=== PATIENT | female | born 1980 | race Caucasian/White ===

== ENCOUNTER 2023-06-28 13:18 | Emergency (ER) | payer OTHER, SELFPAY ==
--- NOTE | ~2023-06-28 | XR_ITS ---
EXAMINATION: XR CHEST CLINICAL INFORMATION: Chest tightness COMPARISON: None available. TECHNIQUE: 2 views of the chest were obtained. FINDINGS: There is no evidence of acute parenchymal disease, pneumothorax, or pleural effusion. Heart normal size. No evidence of pulmonary edema. Status post previous left neck surgery. 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 XR/XR chest 2V IMPRESSION: No acute disease.
[2023-06-28 15:15] VITALS: BP 98/64; PULSE 103; RESP 18; TEMP 37.1; O2SAT 99; BMI 27.1
--- NOTE | 2023-06-28 15:15 | ED.GENADULT ---
HPI - General Adult General Chief complaint: Upper Respiratory Symptoms Stated complaint: flu like symptoms Time Seen by Provider: 06/28/23 23:25 Source: patient and family () Mode of arrival: ambulatory Limitations: no limitations History of Present Illness HPI narrative: 43-year-old female with history of diabetes mellitus and asthma who presents emergency department for evaluation of positive flu test 3 days prior with persistent fever as high as 103 degrees F, nonproductive cough, chest pain, shortness of breath, fatigue, weakness, nausea, vomiting and diarrhea. Patient states she tested positive for influenza 3 days prior. She states that she has had a cough which is nonproductive, she has chest tightness which is worse with coughing. She does have asthma and she has been using her inhaler frequently for shortness of breath. She states that she has had nausea with 1 or 2 episodes of vomiting per day. She states she had diarrhea today after drinking soup. She complains of fatigue, myalgias and arthralgias. She states she was not feeling better therefore she came to the emergency department for evaluation. Patient had an adverse reaction to Tamiflu she states this caused her to have nausea and vomiting. Related Data Previous Rx's Medication Instructions Recorded benzonatate 200 mg capsule 200 mg PO TID PRN cough #20 caps 06/28/23 ondansetron 4 mg disintegrating 4 mg PO Q6-8H PRN nausea and 06/28/23 tablet vomiting #14 tabs Allergies Allergy/AdvReac Type Severity Reaction Status Date / Time oseltamivir [From Tamiflu] Allergy Nausea Verified 06/28/23 15:15 Review of Systems Review of Systems: Yes all other systems are reviewed and are negative [facility] Past Medical History Attestation statement: The following information was validated with the patient. [facility] Narrative: Past medical history: Asthma, diabetes mellitus. Social history: She is . She denies tobacco, alcohol and drug use. Onset Date is defined in the Problem List Problems that require an onset date and time if occurred within 24 hrs of arrival to the ED Aortic Dissection and Rupture; Neurologic impairment; Cardiopulmonary Arrest; Endotracheal Intubation; Insertion or Replacement of Mechanical Circulatory Assist Device Social History Social History Advance Directives: No Advance Directives Information Provided: Yes Physical Exam ED Vital Signs: Vital Signs - 24 hr 06/28/23 15:15 06/28/23 20:12 06/28/23 22:46 Temperature 98.8 F 100.1 F 100.2 F Pulse Rate 103 H 102 H 114 H Respiratory Rate 18 20 18 Blood Pressure 98/64 122/68 122/74 Pulse Oximetry 99 98 98 Oxygen Delivery Method Room Air Room Air Room Air BMI result Body Mass Index 27.1 Vital signs did reveal an elevated heart rate of 103, O2 saturation was 99% on room air Exam General: Awake, alert in no distress Head: Normocephalic, atraumatic EENT: PERRL, Lids normal, sclera normal, conjunctiva normal, nose normal , ears normal, throat without erythema or exudates Neck: Supple, no adenopathy, no trachea midline or C-spine tenderness Lung: breath sounds symmetric, no wheezing, rales or rhonchi Chest: symmetric movement, nontender Heart: regular rate and rhythm, normal S1, S2 no murmurs or rubs Abdomen: soft, non-tender, nondistended, normal bowel sounds Back: no vertebral tenderness, no CVAT Extremities: no deformities, moves all extremities symmetrically Neuro: Awake, alert, oriented, normal speech,moves all extremities symmetrically Psych: Pleasant, cooperative Course Course Course Narrative: This is an RME: Additional HPI, ROS, PE not included below will be deferred to primary provider. This is a 43-year old female, with a hx of asthma, presenting to the emergency department with a complaint of fevers and chest tightness x 3 days. She tested positive for flu 3 days ago. Reporting chest tightness. Reporting diarrhea, vomiting. Taking Tylenol. Plan: Labs Medications Administered Discontinued Medications Generic Name Dose Route Start Last Admin Trade Name Riteshq PRN Reason Stop Dose Admin Acetaminophen 650 mg 06/28/23 22:48 06/28/23 22:50 Acetaminophen 325 Mg Tablet PO 06/28/23 22:49 650 mg ONCE ONE Administration Medical Decision Making Medical Decision Making [facility] Narrative: 43-year-old female history of asthma, diabetes who tested positive for influenza 3 days prior presents emergency department for evaluation of persistent fever, nonproductive cough, chest tightness with breathing coughing, shortness of breath, nausea, vomiting and diarrhea. Patient's vital signs did reveal an elevated pulse otherwise were unremarkable. Physical examination was unremarkable Following evaluation was ordered: CBC, CMP, chest x-ray 23:50 My interpretation patient's laboratory evaluation is as follows: CBC was normal. Glucose elevated 131. My interpretation patient's chest x-ray is no acute disease Patient's symptoms are consistent with acute influenza and I did discuss this with her. Patient was advised to continue taking Tylenol and ibuprofen for pain and fever She was prescribed Tessalon Perles 200 mg 3 times a day as needed for cough and ondansetron ODT 4 mg every 6 hours as needed for nausea and vomiting Patient was given a work note Differential Diagnosis Differential Diagnoses: The differential diagnosis associated with the presentation includes Differential diagnosis includes was not limited to acute viral syndrome, pneumonia, asthma exacerbation, electrolyte abnormalities, anemia Admission/Observation Consideration of admission/observation: Escalation of care including admission/observation considered Lab Data MDM Lab Attestation statement: I reviewed the patient's lab results. 06/28/23 16:43 06/28/23 16:43 Labs: Lab Results 06/28/23 Range/Units 16:43 WBC 6.2 (4.8-10.8) X10*3/uL RBC 4.54 (4.20-5.50) X10*6/uL Hgb 13.7 (12.0-16.0) g/dl Hct 40.3 (37.0-47.0) % MCV 88.8 (80.0-98.0) fL MCH 30.2 (27.0-33.0) pg MCHC 34.0 (31.0-35.0) g/dl RDW 13.1 (11.0-16.0) % Plt Count 320 (160-400) X10*3/uL MPV 9.9 (9.4-12.3) fL Immature Gran % (Auto) 0.2 (0.0-0.4) % Neut % (Auto) 59.7 (45-73) % Lymph % (Auto) 31.7 (20-40) % [place] % (Auto) 6.0 (2-11) % Eos % (Auto) 1.6 (0-4) % Baso % (Auto) 0.8 (0-2) % Lymph # (Auto) 2.0 (1.2-4.9) X10*3/uL [place] # (Auto) 0.4 (0.1-1.2) X10*3/uL Eos # (Auto) 0.1 (0.0-0.4) X10*3/uL Baso # (Auto) 0.1 (0.0-0.2) X10*3/uL Abs Immat Gran (auto) 0.01 (0.00-0.03) X10*3/uL Absolute Neuts (auto) 3.7 (2.0-8.3) x10*3/uL Absolute Nucleated RBC 0.000 (0.0-0.012) X10*3/uL Nucleated RBC % (auto) 0.0 (0.0-0.2) /100WBC Sodium 139 (135-145) mmol/L Potassium 3.4 (3.3-5.1) mmol/L Chloride 103 (96-108) mmol/L Carbon Dioxide 25 (22-29) mmol/L Anion Gap 14 (12-20) BUN 8 L (9-16) mg/dL Creatinine 0.87 (0.5-1.4) mg/dL Estim Creat Clear Calc 88.1 Estimated GFR > 60 Random Glucose 131 H (60-115) mg/dL Calcium 9.3 (8.4-10.2) mg/dL Total Bilirubin 0.6 (0.0-1.0) mg/dL AST 22 (5-31) U/L ALT 44 H (0-31) U/L Alkaline Phosphatase 81 (39-117) U/L Total Protein 8.2 H (6.5-8.0) g/dL Albumin 4.4 (3.5-5.0) g/dL Independent Interpretation I performed an independent interpretation of an: Plain X-Ray Interpretation: My interpretation patient's chest x-ray is as follows: No acute disease Radiology Impression Discussion of test interpretation with radiology: I have reviewed the radiologist's reading. Radiologist Impression: XR chest 2V IMPRESSION: No acute disease. Dictated By: Elmer Dooley MD Independent Historian Clinical information obtained from an independent historian. History obtained from or confirmed by: Spouse Prescription Management I considered prescription management with: Other (Antiemetics) Chronic Conditions Patient?s care impacted by: Diabetes and Other (Asthma) Discharge Plan Discharge Clinical Impression: Influenza Patient Disposition: Home, Self-Care Instructions: Influenza (ED) Additional Instructions: Your symptoms are consistent with the influenza. Your chest x-ray was normal with no evidence of pneumonia Your blood work today was normal as well which is reassuring. Take children's ibuprofen 100 mg per 5 mL, take 20 mL every 6 hours as needed for pain or fever. Take children's Tylenol (acetaminophen) 160 mg per 5 mL, 20 mL every 4 hours as needed for pain or fever. Try taking Tylenol first, then 2 hours later take ibuprofen, if you are still having a fever. Then at the 4 hour angle you can take another dose of Tylenol for fever. Take Zofran ODT 4 mg pills, 1 pill dissolved in your mouth every 8 hours as needed for nausea and vomiting. Take Tessalon Perles, 200 mg pills, 1 pill 3 times a day as needed for cough. Follow-up with your doctor in 2 days. Please return to the emergency department if your symptoms get worse or if you develop any symptoms that are concerning to you. Please see work note Prescriptions: New ondansetron 4 mg tablet,disintegrating 4 mg PO Q6-8H PRN (Reason: nausea and vomiting) Qty: 14 0RF benzonatate 200 mg capsule 200 mg PO TID PRN (Reason: cough) Qty: 20 0RF Stand Alone Forms: Work/School Release
[2023-06-28 16:47] LABS: MANUAL DIFF FLAG NO
[2023-06-28 16:50] LABS: Basophils Absolute Auto 0.1 X10*3/uL (0.0-0.2); Basophils Percent Auto 0.8 % (0-2); Eosinophils Absolute Auto 0.1 X10*3/uL (0.0-0.4); Eosinophils Percent Auto 1.6 % (0-4); Hematocrit 40.3 % (37.0-47.0); Hemoglobin 13.7 g/dl (12.0-16.0); Imm Gran Abs Auto 0.01 X10*3/uL (0.00-0.03); Imm Gran Pct Auto 0.2 % (0.0-0.4); Lymphocytes Percent Auto 31.7 % (20-40); Mean Corpuscular Hemoglobin 30.2 pg (27.0-33.0); Mean Corpuscular Volume 88.8 fL (80.0-98.0); Mean Platelet Volume 9.9 fL (9.4-12.3); Monocytes Absolute Auto 0.4 X10*3/uL (0.1-1.2); Neutrophils Absolute Auto 3.7 x10*3/uL (2.0-8.3); Neutrophils Percent Auto 59.7 % (45-73); Platelet Count 320 X10*3/uL (160-400); Red Blood Count 4.54 X10*6/uL (4.20-5.50); Red Cell Distribution Width 13.1 % (11.0-16.0); White Blood Count 6.2 X10*3/uL (4.8-10.8)
[2023-06-28 17:09] LABS: Alanine Aminotransferase 44 U/L (0-31); Albumin Level 4.4 g/dL (3.5-5.0); Alkaline Phosphatase 81 U/L (39-117); Anion Gap 14 (12-20); Aspartate Amino Transferase 22 U/L (5-31); Bilirubin Total 0.6 mg/dL (0.0-1.0); Blood Urea Nitrogen 8 mg/dL (9-16); Calcium 9.3 mg/dL (8.4-10.2); Carbon Dioxide 25 mmol/L (22-29); Chloride 103 mmol/L (96-108); Creatinine Clr Calc Pharmacy 88.1; Estimated Glomerular Filt Rate > 60; Glucose Random 131 mg/dL (60-115); Potassium 3.4 mmol/L (3.3-5.1); Sodium 139 mmol/L (135-145); Total Protein 8.2 g/dL (6.5-8.0)
[2023-06-28 20:12] VITALS: BP 122/68; PULSE 102; RESP 20; TEMP 37.8; O2SAT 98
[2023-06-28 22:46] VITALS: BP 122/74; PULSE 114; RESP 18; TEMP 37.9; O2SAT 98
[2023-06-28] MEDS: Acetaminophen 325 MG TABLET 650 MG PO (22:50)
[2023-06-29] MEDS: Ibuprofen Oral Susp 200 MG/10 ML ORAL.SUSP 600 MG PO (00:09)
[2023-06-29 00:10] VITALS: BP 116/74; PULSE 118; RESP 19; TEMP 37.9; O2SAT 96
== END 2023-06-29 00:12 | disposition home or self-care (01) ==
PROVIDERS: Physician Assistant Medical; Emergency Provider Emergency Medicine Emergency Medical Services; PCP Internal Medicine
DX: J10.1 Influenza due to other identified influenza virus with other respiratory manifestations (principal); R50.9 Fever, unspecified; J45.909 Unspecified asthma, uncomplicated
CPT/HCPCS: 36415; 71046; 80053; 85025; 99283; 99284